=== PATIENT | female | born 1985 | race Caucasian/White ===

== ENCOUNTER 2016-07-27 20:43 | Emergency (ER) | payer MEDICAID ==
[~2016-07-27] VITALS: Ht 157.5 cm; Wt 93.6 kg
[~2016-07-27 20:43] MED LIST: DOCU-30 PO; FERR325T23 PO; IBUP800T PO; OXYC-302 PO; PREN1TAB27 PO
[2016-07-27] MEDS ORDERED: SODIUM CHLORIDE 0.9% 1,000ML IVBOLUS ONE (21:00)
[2016-07-27] MEDS ORDERED: SODIUM CHLORIDE FLUSH 10ML SYR IVF ONE (21:00)
[2016-07-27 21:52] LABS: BLOOD UREA NITROGEN 10 mg/dL (7-18)
[2016-07-27 23:31] VITALS: BP 115/65
== END 2016-07-27 23:33 | disposition home or self-care (01) ==
LOC: ED 22:05
DX: O26.891 Other specified pregnancy related conditions, first trimester (principal); R11.2 Nausea with vomiting, unspecified
CPT/HCPCS: 36415; 76801; 80048; 81003; 82040; 84702; 85025; 96360; 96361; 99285; J7030

== ENCOUNTER 2017-02-11 14:35 | Outpatient (CLI) | payer MEDICAID ==
[~2017-02-11] VITALS: Ht 157.5 cm; Wt 102.3 kg
[~2017-02-11 14:35] MED LIST changes: +DOCU-131 PO; -DOCU-30 PO; +IBUP-1223 PO; -IBUP800T PO
[2017-02-11] MEDS ORDERED: ACET650S21 PO (15:15)
[2017-02-11 15:16] VITALS: BP 117/61
[2017-02-11] MEDS ORDERED: FLU VACC QS2017-18 (36MOS+) UP/PF 0.5 ML IM-VACC ONE (15:30)
== END 2017-02-11 16:10 | disposition home or self-care (01) ==
LOC: LDOP 14:35
PROVIDERS: ATTEND Obstetrics & Gynecology
DX: O26.893 Other specified pregnancy related conditions, third trimester (principal); O11.3 Pre-existing hypertension with pre-eclampsia, third trimester; R42 Dizziness and giddiness; Z3A.35 35 weeks gestation of pregnancy
CPT/HCPCS: 59025; 81001; 87086; 90686; 99211; G0008; G0463

== ENCOUNTER 2017-03-11 08:05 | Inpatient (IN) | payer MEDICAID ==
[~2017-03-11] VITALS: Ht 157.5 cm; Wt 105.5 kg
[2017-03-11] VITALS (7 sets, daily range): BP systolic 105–142; BP diastolic 58–87
[~2017-03-11 08:05] MED LIST changes: +ACET650S21 PO
[2017-03-11] MEDS ORDERED: LACTATED RINGERS 1,000 ML IV SCH ×2 (08:08→10:30)
[2017-03-11] MEDS ORDERED: OXYTOCIN 30U/ 0.9% NaCL 500ML 500 ML IV SCH (08:08)
[2017-03-11] MEDS ORDERED: CEFAZOLIN PMX 1GM/50ML 50 ML IVPB ONE (08:30)
[2017-03-11] MEDS ORDERED: PLEASE ENTER HEIGHT AND WEIGHT MC SCH (08:30)
[2017-03-11] MEDS ORDERED: SODIUM CITRATE/CITRIC ACID 30 ML UDC PO ONE (08:30)
[2017-03-11] MEDS ORDERED: LACTATED RINGERS 1,000 ML IVBOLUS ONE (08:30)
[2017-03-11] MEDS ORDERED: METOCLOPRAMIDE 5 MG/ML, 2ML IV ONE (08:30)
[2017-03-11 08:37] LABS: BASOPHILS # (AUTO) 0.07 x10^3/uL (0-0.1); BASOPHILS % (AUTO) 1 % (0-1); EOSINOPHILS # (AUTO) 0.07 x10^3/uL (0-0.4); EOSINOPHILS % (AUTO) 1 % (1-7); LYMPHOCYTES # (AUTO) 1.56 x10^3/uL (1-3.4); LYMPHOCYTES % (AUTO) 18 % (22-44); MD NO; MEAN CORPUSCULAR HEMOGLOBIN 29.8 pg (27.0-34.8); MEAN CORPUSCULAR HGB CONC 33.4 g/dL (32.4-35.8); MEAN CORPUSCULAR VOLUME 89.2 fL (80-100); MEAN PLATELET VOLUME 8.9 fL (7.4-10.4); MONOCYTES # (AUTO) 0.37 x10^3/uL (0.2-0.8); MONOCYTES % (AUTO) 4 % (2-9); NEUTROPHILS # (AUTO) 6.66 x10^3/uL (1.8-6.8); NEUTROPHILS % (AUTO) 76 % (42-75); PLATELET COUNT 278 x10^3/uL (130-400); RED BLOOD COUNT 3.93 x10^6/uL (3.82-5.3); RED CELL DISTRIBUTION WIDTH 14.7 % (9.6-15.2)
[2017-03-11] MEDS ORDERED: METOCLOPRAMIDE 5 MG/ML, 2ML ONE (08:57)
[2017-03-11] MEDS ORDERED: OXYTOCIN 30U/ 0.9% NaCL 500ML 500 ML ONE (08:57)
[2017-03-11] MEDS ORDERED: SODIUM CITRATE/CITRIC ACID 30 ML UDC ONE (08:57)
[2017-03-11] MEDS ORDERED: NEWBORN KIT ONE (10:35)
[2017-03-11] MEDS ORDERED: EPHEDRINE 50 MG/ML, 1ML ONE (11:38)
[2017-03-11] MEDS ORDERED: KETOROLAC 30 MG/1 ML ONE (11:38)
[2017-03-11] MEDS ORDERED: CEFAZOLIN 1,000 MG ONE (11:38)
[2017-03-11] MEDS ORDERED: FENTANYL PF 100 MCG/2ML ONE ×2 (11:38→13:23)
[2017-03-11] MEDS ORDERED: OXYTOCIN 10 UNITS/ML, 1ML ONE (11:38)
[2017-03-11] MEDS ORDERED: morphine SULFATE 10 MG/ML, 1ML ONE (12:00)
[2017-03-11] MEDS: LACTATED RINGERS 1,000 ML IV SCH ×4 (12:21→22:21)
[2017-03-11] MEDS: OXYTOCIN 30U/ 0.9% NaCL 500ML 500 ML IV SCH ×2 (12:21→22:21)
[2017-03-11] MEDS ORDERED: METHYLERGONOVINE 0.2 MG/ML IM PRN (12:30)
[2017-03-11] MEDS ORDERED: CALCIUM CARBONATE 500 MG TAB.CHEW PO PRN (12:30)
[2017-03-11] MEDS ORDERED: morphine SULFATE 10 MG/ML, 1ML IVPush PRN (12:30)
[2017-03-11] MEDS ORDERED: ONDANSETRON 2MG/ML, 2ML IV PRN (12:30)
[2017-03-11] MEDS ORDERED: ACETAMINOPHEN 325 MG TABLET PO PRN ×2 (12:30)
[2017-03-11] MEDS ORDERED: SIMETHICONE 80 MG CHEW TAB PO PRN (12:30)
[2017-03-11] MEDS ORDERED: FENTANYL PF 100 MCG/2ML IVPush PRN (13:15)
[2017-03-11] MEDS ORDERED: OXYcodone 5 MG/5 ML ORAL.SOL UDC ONE (13:21)
[2017-03-11] MEDS ORDERED: OXYcodone 5 MG/5 ML ORAL.SOL UDC PO PRN (14:30)
[2017-03-11] MEDS: KETOROLAC 30 MG/1 ML IV SCH ×2 (17:15→22:50)
[2017-03-11] MEDS: OXYcodone/APAP 5/325MG TABLET PO PRN (18:57)
[2017-03-11 19:19] LABS: BASOPHILS # (AUTO) 0.08 x10^3/uL (0-0.1); BASOPHILS % (AUTO) 1 % (0-1); EOSINOPHILS # (AUTO) 0.05 x10^3/uL (0-0.4); EOSINOPHILS % (AUTO) 1 % (1-7); LYMPHOCYTES % (AUTO) 13 % (22-44); MD NO; MEAN CORPUSCULAR HEMOGLOBIN 30.5 pg (27.0-34.8); MEAN CORPUSCULAR HGB CONC 34.4 g/dL (32.4-35.8); MEAN CORPUSCULAR VOLUME 88.8 fL (80-100); MEAN PLATELET VOLUME 8.6 fL (7.4-10.4); MONOCYTES # (AUTO) 0.28 x10^3/uL (0.2-0.8); MONOCYTES % (AUTO) 3 % (2-9); NEUTROPHILS # (AUTO) 7.03 x10^3/uL (1.8-6.8); NEUTROPHILS % (AUTO) 82 % (42-75); PLATELET COUNT 227 x10^3/uL (130-400); RED BLOOD COUNT 3.58 x10^6/uL (3.82-5.3); RED CELL DISTRIBUTION WIDTH 14.6 % (9.6-15.2)
[2017-03-12] MEDS: LACTATED RINGERS 1,000 ML IV SCH ×5 (04:21→20:21)
[2017-03-12 04:25] VITALS: BP 102/63
[2017-03-12] MEDS: OXYcodone/APAP 5/325MG TABLET PO PRN ×3 (04:40→18:07)
[2017-03-12] MEDS: KETOROLAC 30 MG/1 ML IV SCH ×4 (05:56→23:56)
[2017-03-12 07:15] VITALS: BP 96/61
[2017-03-12] MEDS: OXYTOCIN 30U/ 0.9% NaCL 500ML 500 ML IV SCH ×2 (08:21→18:21)
[2017-03-12] MEDS: DOCUSATE 100 MG CAPSULE PO PRN (08:30)
[2017-03-12] MEDS: PRENATAL VIT/IRON/FA 1 EACH TABLET PO SCH (08:30)
[2017-03-12 19:45] VITALS: BP 119/76
[2017-03-13] MEDS: OXYTOCIN 30U/ 0.9% NaCL 500ML 500 ML IV SCH ×2 (04:21→14:21)
[2017-03-13] MEDS: LACTATED RINGERS 1,000 ML IV SCH ×5 (04:21→20:21)
[2017-03-13] MEDS: OXYcodone/APAP 5/325MG TABLET PO PRN ×4 (04:50→23:13)
[2017-03-13] MEDS: KETOROLAC 30 MG/1 ML IV SCH ×2 (06:13→11:00)
[2017-03-13 09:30] VITALS: BP 113/65
[2017-03-13] MEDS: IBUPROFEN 800 MG TABLET PO PRN ×2 (11:25→23:13)
[2017-03-13] MEDS: DOCUSATE 100 MG CAPSULE PO PRN ×2 (11:25→23:13)
[2017-03-13] MEDS: PRENATAL VIT/IRON/FA 1 EACH TABLET PO SCH (11:26)
[2017-03-13 19:15] VITALS: BP 116/78
[2017-03-14] MEDS: OXYTOCIN 30U/ 0.9% NaCL 500ML 500 ML IV SCH (00:21)
[2017-03-14] MEDS: LACTATED RINGERS 1,000 ML IV SCH ×2 (00:21→04:21)
[2017-03-14] MEDS: OXYcodone/APAP 5/325MG TABLET PO PRN ×2 (05:52→10:14)
[2017-03-14 08:03] VITALS: BP 128/75
[2017-03-14] MEDS: PRENATAL VIT/IRON/FA 1 EACH TABLET PO SCH (08:31)
[2017-03-14] MEDS: IBUPROFEN 800 MG TABLET PO PRN (08:31)
[2017-03-14] MEDS: DOCUSATE 100 MG CAPSULE PO PRN (08:31)
[2017-03-14] MEDS ORDERED: IBUP-1222 PO ×2 (10:03→10:04)
[2017-03-14] MEDS ORDERED: OXYC-302 PO (10:04)
== END 2017-03-14 10:35 | disposition home or self-care (01) | DRG 766 ==
LOC: LDIP 08:05 → 2NW 14:20
PROVIDERS: ADMIT Obstetrics & Gynecology; ATTEND Obstetrics & Gynecology
PROC: 0UB70ZZ Excision of Bilateral Fallopian Tubes, Open Approach (ICD-10-PCS; principal; 2017-03-11)
PROC: 10D00Z1 Extraction of Products of Conception, Low, Open Approach (ICD-10-PCS; 2017-03-11)
DX: O34.211 Maternal care for low transverse scar from previous cesarean delivery (principal); Z30.2 Encounter for sterilization; Z37.0 Single live birth; Z3A.39 39 weeks gestation of pregnancy
CPT/HCPCS: 36415; 85025; 86850; 86900; 88302; J0690; J1885; J3010; J2270; J2590; J2765; J7120

== ENCOUNTER 2017-10-08 21:16 | Emergency (ER) | payer MEDICAID ==
[~2017-10-08] VITALS: Ht 157.5 cm; Wt 92.2 kg
[~2017-10-08 21:16] MED LIST changes: +IBUP-1222 PO
[2017-10-08 21:28] VITALS: BP 92/60
== END 2017-10-08 22:35 | disposition home or self-care (01) ==
LOC: ED 22:26
DX: H66.001 Acute suppurative otitis media without spontaneous rupture of ear drum, right ear (principal); K04.7 Periapical abscess without sinus; Z90.49 Acquired absence of other specified parts of digestive tract; Z90.89 Acquired absence of other organs
CPT/HCPCS: 99283

== ENCOUNTER 2018-01-03 18:35 | Emergency (ER) | payer MEDICAID ==
[~2018-01-03] VITALS: Ht 157.5 cm; Wt 84.8 kg
[2018-01-03 18:39] VITALS: BP 125/83
[2018-01-03] MEDS ORDERED: DEXAMETHASONE 4 MG TABLET ONE (19:26)
[2018-01-03] MEDS ORDERED: DEXAMETHASONE 4 MG TABLET PO ONE (19:30)
== END 2018-01-03 19:32 | disposition home or self-care (01) ==
LOC: ED 19:25
DX: J06.9 Acute upper respiratory infection, unspecified (principal); B34.9 Viral infection, unspecified; R05 Cough; Z88.8 Allergy status to other drugs, medicaments and biological substances
CPT/HCPCS: 71046; 99284

== ENCOUNTER 2018-05-16 19:13 | Emergency (ER) | payer MEDICAID ==
[~2018-05-16] VITALS: Ht 157.5 cm; Wt 82.1 kg
[2018-05-16 19:21] VITALS: BP 124/74
[2018-05-16] MEDS ORDERED: LIDOCAINE-MPF 1%, 5ML INFIL ONE (19:30)
[2018-05-16] MEDS ORDERED: BUPIVACAINE 0.25% ONE (21:36)
[2018-05-16] MEDS ORDERED: BUPIVACAINE/PF-EPI 0.25% 1:200K SQ ONE (22:00)
[2018-05-16] MEDS ORDERED: HYDROcodone/APAP 5/325 TABLET ONE (22:15)
[2018-05-16] MEDS ORDERED: IBUPROFEN 200 MG TABLET ONE (22:15)
[2018-05-16] MEDS ORDERED: HYDROcodone/APAP 5/325 TABLET PO ONE (22:30)
[2018-05-16] MEDS ORDERED: IBUPROFEN 200 MG TABLET PO ONE (22:30)
== END 2018-05-16 22:51 | disposition home or self-care (01) ==
LOC: ED 22:15
DX: S61.203A Unspecified open wound of left middle finger without damage to nail, initial encounter (principal); Z90.49 Acquired absence of other specified parts of digestive tract; X58.XXXA Exposure to other specified factors, initial encounter; Y93.89 Activity, other specified; Y92.009 Unspecified place in unspecified non-institutional (private) residence as the place of occurrence of the external cause; Y99.8 Other external cause status
CPT/HCPCS: 11730; 99283

== ENCOUNTER 2018-08-14 22:24 | Emergency (ER) | payer MEDICAID ==
[~2018-08-14] VITALS: Ht 157.5 cm; Wt 78.1 kg
--- NOTE | 2018-08-14 23:25 | NUR ---
PT. REPORTS HEAVY VB "GOING [place] A SUPER TAMPON EVERY 2 HOURS." ALSO C/O ABD PAIN 10/05. MONITORS APPLIED, SIDERAILS UP X2, CALL LIGHT WITHIN REACH
[2018-08-14 23:29] LABS: BASOPHILS # (AUTO) 0.03 x10^3/uL (0-0.1); BASOPHILS % (AUTO) 0 % (0-1); EOSINOPHILS # (AUTO) 0.13 x10^3/uL (0-0.4); EOSINOPHILS % (AUTO) 1 % (1-7); LYMPHOCYTES # (AUTO) 2.55 x10^3/uL (1-3.4); LYMPHOCYTES % (AUTO) 28 % (22-44); MD NO; MEAN CORPUSCULAR HEMOGLOBIN 31.2 pg (27.0-34.8); MEAN CORPUSCULAR HGB CONC 33.2 g/dL (32.4-35.8); MEAN CORPUSCULAR VOLUME 93.8 fL (80-100); MEAN PLATELET VOLUME 9.6 fL (7.4-10.4); MONOCYTES # (AUTO) 0.17 x10^3/uL (0.2-0.8); MONOCYTES % (AUTO) 2 % (2-9); NEUTROPHILS % (AUTO) 68 % (42-75); PLATELET COUNT 325 x10^3/uL (130-400); RED BLOOD COUNT 4.55 x10^6/uL (3.82-5.3); RED CELL DISTRIBUTION WIDTH 13.8 % (9.6-15.2)
--- NOTE | 2018-08-14 23:30 | NUR ---
URINE SAMPLE SENT
[2018-08-14 23:37] LABS: ALANINE AMINOTRANSFERASE 19 U/L (12-78); ALBUMIN 4.5 g/dL (3.4-5.0); ANION GAP 6 mmol/L (5-15); CALCIUM 8.8 mg/dL (8.5-10.1); CHLORIDE 107 mmol/L (98-107)
[2018-08-14 23:41] LABS: ALKALINE PHOSPHATASE 96 U/L (45-117); BILIRUBIN,TOTAL 0.7 mg/dL (0.2-1.0); TOTAL PROTEIN 8.1 g/dL (6.4-8.2)
--- NOTE | 2018-08-14 23:50 | NUR ---
PT TO ULTRASOUND
--- NOTE | 2018-08-15 00:12 | NUR ---
PT RESTING ON GURNEY, DENIES NEEDS, MONITORS IN PLACE, CALL LIGHT WITHIN REACH. AWAITING ULTRASOUND RESULT
[2018-08-15 00:13] LABS: MICROSCOPIC AUTO
[2018-08-15 00:15] LABS: CULTURE INDICATED? YES
[2018-08-15] MEDS ORDERED: CEFTRIAXONE 250 MG ONE (00:56)
[2018-08-15] MEDS ORDERED: AZITHROMYCIN 250 MG TABLET ONE (00:56)
[2018-08-15 00:58] VITALS: BP 109/51
[2018-08-15] MEDS ORDERED: AZITHROMYCIN 500 MG TABLET PO ONE (01:00)
[2018-08-15] MEDS ORDERED: CEFTRIAXONE 250 MG IM ONE (01:00)
--- NOTE | 2018-08-15 01:03 | NUR ---
PT MEDICATED PER MAR
== END 2018-08-15 01:13 | disposition home or self-care (01) ==
LOC: ED 08-15 00:01
DX: N93.8 Other specified abnormal uterine and vaginal bleeding (principal); Z90.49 Acquired absence of other specified parts of digestive tract
CPT/HCPCS: 36415; 76830; 80053; 81001; 84703; 85025; 87086; 87491; 87591; 96372; 99284; J0696

== ENCOUNTER 2020-06-08 08:31 | Outpatient (CLI) | payer MEDICAID ==
[~2020-06-08 08:31] MED LIST changes: -OXYC-302 PO; +OXYC1TAB14 PO
== END 2020-06-08 23:59 | disposition home or self-care (01) ==
LOC: CFH 08:31
PROVIDERS: ATTEND Obstetrics & Gynecology
DX: N63.14 Unspecified lump in the right breast, lower inner quadrant (principal); N63.10 Unspecified lump in the right breast, unspecified quadrant
CPT/HCPCS: 76642; 77062; 77066; G0279